=== PATIENT | female | born 1945 | race Caucasian/White ===

== ENCOUNTER 2022-09-10 00:46 | Emergency (ER) | payer OTHER, MEDICAID ==
[~2022-09-10] VITALS: Ht 152.4 cm; Wt 84.4 kg
[~2022-09-10 00:46] MED LIST: ACET325T52 MT; NITR-87 MT
[2022-09-10 01:55] LABS: CHLORIDE 103 mEq/L (98-107)
[2022-09-10 02:03] LABS: HEMATOCRIT 35.1 % (36.0-48.0); HEMOGLOBIN 11.8 g/dL (12.0-16.0); MEAN CORPUSCULAR HEMOGLOBIN 29.2 pg (28.0-32.0); MEAN CORPUSCULAR VOLUME 87.3 fL (81.0-99.0); PLATELET 379 x1000/uL (130-400); RED BLOOD CELL COUNT 4.03 mill/uL (4.2-5.4)
[2022-09-10] MEDS ORDERED: MORPHINE SULFATE 4 MG/ML CPJ (NOT FOR IM USE) IV STA (05:20)
[2022-09-10] MEDS ORDERED: ONDANSETRON HCL 4MG/2ML INJ IV STA (05:20)
[2022-09-10 05:25] LABS: CLARITY URINE CLOUDY (CLEAR); COLOR URINE YELLOW (YELLOW); KETONES URINE NEGATIVE (NEGATIVE); LEUKOCYTE ESTERASE URINE TRACE (NEGATIVE); NITRITE URINE NEGATIVE (NEGATIVE); OCCULT BLOOD URINE NEGATIVE (NEGATIVE); PH URINE 7.5 (4.5-8.0); PROTEIN URINE TRACE (NEGATIVE); SPECIFIC GRAVITY URINE 1.017 (1.005-1.030)
[2022-09-10 05:41] LABS: BASOPHILS % 0.1 % (0.0-2.0); HEMATOCRIT. 33.1 % (36.0-48.0); HEMOGLOBIN. 11.5 g/dL (12.0-16.0); LYMPHOCYTES % 8.2 % (20.0-50.0); MEAN CORPUSCULAR HEMOGLOBIN 30.1 pg (28.0-32.0); MEAN CORPUSCULAR VOLUME 86.9 fL (81.0-99.0); MEAN PLATELET VOLUME 7.5 fl (7.4-10.4); MONOCYTES % 8.5 % (2.0-8.0); NEUTROPHILS % 83.2 % (40.0-76.0); PLATELET 337 x1000/uL (130-400); RED BLOOD CELL COUNT 3.81 mill/uL (4.2-5.4); RED CELL DISTRIBUTION WIDTH 12.9 % (11.6-14.6)
[2022-09-10 05:50] LABS: CHLORIDE 105 mEq/L (98-107)
[2022-09-10 06:03] LABS: PROTHROMBIN TIME 11.1 sec (9.6-11.0)
[2022-09-10] MEDS ORDERED: ONDANSETRON HCL 4MG/2ML INJ IV ONE (08:15)
[2022-09-10] MEDS ORDERED: MORPHINE SULFATE 4 MG/ML CPJ (NOT FOR IM USE) IV ONE (08:15)
[2022-09-10] MEDS ORDERED: CEFTRIAXONE 1GM PREMIX 50 ML IV ONE (08:15)
[2022-09-10 09:30] VITALS: BP 144/65
== END 2022-09-10 11:03 | disposition short-term general hospital (02) ==
LOC: ER 00:46 → CANBEDREQ 09-11 10:58
DX: N39.0 Urinary tract infection, site not specified (principal); E86.0 Dehydration; Z98.890 Other specified postprocedural states; Z20.822 Contact with and (suspected) exposure to COVID-19
CPT/HCPCS: 36415; 74176; 80053; 81003; 83690; 85025; 85027; 85610; 87426; 93005; 96365; 96375; 96376; 99285; C9803; J0696; J2270; J2405